=== PATIENT | female | born 1975 | race Caucasian/White ===

== ENCOUNTER 2020-01-24 07:29 | Day surgery (SDC) | payer OTHER, SELFPAY ==
[~2020-01-24] VITALS: Ht 154.9 cm; Wt 54.4 kg
[2020-01-24] MEDS ORDERED: fentaNYL citrate 0.05 MG/ML VIAL ONE (09:04)
[2020-01-24] MEDS ORDERED: MIDAZOLAM 5 MG/5 ML VIAL ONE (09:04)
[2020-01-24] MEDS ORDERED: diphenhydrAMINE 50 MG/ML VIAL ONE (09:04)
[2020-01-24] MEDS ORDERED: LIDOCAINE 2% 100 MG/5 ML UJET TP ONE (09:05)
[2020-01-24] MEDS ORDERED: fentaNYL citrate 0.05 MG/ML VIAL IVP ONE (11:45)
[2020-01-24] MEDS ORDERED: MIDAZOLAM 2 MG/2 ML VIAL IVP ONE (11:45)
== END 2020-01-24 10:30 | disposition home or self-care (01) ==
LOC: MDS 07:29 → MFCC 07:30 → MDS 10:30
PROVIDERS: ATTEND Internal Medicine Gastroenterology
DX: K92.1 Melena (principal); K63.5 Polyp of colon; K59.00 Constipation, unspecified; Z80.0 Family history of malignant neoplasm of digestive organs; Z98.82 Breast implant status; Z20.828 Contact with and (suspected) exposure to other viral communicable diseases
CPT/HCPCS: 45385; 81025; J2250; J3010; U0003; J1200